=== PATIENT | female | born 1990 | race Caucasian/White ===

== ENCOUNTER 2017-07-16 17:00 | Emergency (ER) | payer SELFPAY ==
[2017-07-16 17:06] VITALS: BP 120/68
--- NOTE | 2017-07-16 17:26 | ER Document Report ---
HPI - HPI Patient complains to provider of: Upper back, neck pain, and frequent headaches Onset: Other Onset/Duration: Sudden Quality of pain: Achy Severity: Moderate - Very seldom it was Danilo earlier Pain Level: 3 Context: Patient states she was carrying boxes down a staircase of about 10-15 steps 1 week ago. Patient states she fell, but did not feel hurt at the time. Since then she has developed neck and upper back pain that radiates around to the chest wall with movement. Patient states she has been having frequent headaches , states she bumped her head but there was no loss of consciousness, no nausea or vomiting, and no visual changes. Patient denies any bruises at time of incident. Associated Symptoms: Headache Exacerbated by: Movement Relieved by: Remaining still Similar symptoms previously: No Recently seen / treated by doctor: No - ROS ROS below otherwise negative: Yes Systems Reviewed and Negative: Yes All other systems reviewed and negative - CONSTITUTIONAL Constitutional: DENIES: Fever - EENT EENT: DENIES: Congestion - NEURO Neurology: REPORTS: Headache. DENIES: Weakness, Vision blurred, Dizzinesss / Vertigo - CARDIOVASCULAR Cardiovascular: DENIES: Chest pain - RESPIRATORY Respiratory: DENIES: Trouble Breathing - GASTROINTESTINAL Gastrointestinal: DENIES: Abdominal Pain - URINARY Urinary: DENIES: Dysuria - REPRODUCTIVE Reproductive: DENIES: : - MUSCULOSKELETAL Musculoskeletal: REPORTS: Back Pain, Neck Pain - DERM Skin Color: Normal Past Medical History - General Information source: Patient - Social History Smoking Status: Current Some Day Smoker Cigarette use (# per day): Yes Frequency of alcohol use: None Drug Abuse: None Lives with: Family Family History: Arthritis, CVA, DM, Hypertension, Malignancy, Thyroid Disfunction Patient has suicidal ideation: No Patient has homicidal ideation: No Pulmonary Medical History: Reports: Hx Asthma Surgical Hx: Negative - Immunizations Immunizations up to date: Yes Hx Diphtheria, Pertussis, Tetanus Vaccination: Yes - 2007 Hx Pneumococcal Vaccination: 04/22/14 Vertical Provider Document - CONSTITUTIONAL Agree With Documented VS: Yes Exam Limitations: No Limitations General Appearance: WD/WN, No Apparent Distress - INFECTION CONTROL TRAVEL OUTSIDE OF THE [place] IN LAST 30 DAYS: No - HEENT HEENT: Atraumatic, Normal ENT Exam, Normocephalic, PERRLA - NECK Notes: Patient has tender C-spine and bilateral cervical muscles. Range of motion reproduces pain. - RESPIRATORY Respiratory: Breath Sounds Normal, No Respiratory Distress, Chest Non-Tender O2 Sat by Pulse Oximetry: 99 - CARDIOVASCULAR Cardiovascular: Regular Rate, Regular Rhythm - GI/ABDOMEN Gastrointestinal: Abdomen Soft, Abdomen Non-Tender, Normal Bowel Sounds - BACK Notes: Patient is tender along cervical spine and thoracic spine. Lumbar spine nontender. Thoracic muscles tender bilaterally. - MUSCULOSKELETAL/EXTREMETIES Musculoskeletal/Extremeties: MAEW Notes: Patient is able to fully raise her arms above her head and place her hands behind her back without difficulty, although she states this is uncomfortable. - NEURO Level of Consciousness: Awake, Alert, Appropriate Notes: Cranial nerves grossly intact - DERM Integumentary: Warm, Dry, No Rash Course - Re-evaluation Re-evalutation: 07/16/17 18:[address] CT from 2014 negative and discussed with patient when she had a similar injury. - Vital Signs Vital signs: Temp Pulse Resp BP Pulse Ox 98.6 F 83 16 120/68 99 07/16/17 17:01 07/16/17 17:01 07/16/17 17:01 07/16/17 17:01 07/16/17 17:01 Discharge - Discharge Clinical Impression: Neck pain, Thoracic spine pain Cervical muscle strain Qualifiers: Encounter type: initial encounter Qualified Code(s): S16.1XXA - Strain of muscle, fascia and tendon at neck level, initial encounter Condition: Good Disposition: HOME, SELF-CARE Additional Instructions: Meds as prescribed Ice or heat packs to neck Recommend follow-up with orthopedic for further evaluation of neck and upper back pain Follow-up with your doctor if not better in 1 week, or return to the ER if worsens. Prescriptions: Diazepam [Valium 5 mg Tablet] 5 mg PO TID #15 tablet Ibuprofen 600 mg PO TID #15 tablet
[2017-07-16] MEDS ORDERED: IBUPROFEN 600 MG TABLET PO ONE (17:28)
[2017-07-16] MEDS ORDERED: KETOROLAC TROMETHAMINE 60 MG/2 ML SDV IM ONE (17:39)
--- NOTE | 2017-07-16 18:23 | RADIOLOGY REPORT (SQ) ---
EXAM DESCRIPTION: T SPINE AP/LAT COMPLETED DATE/TIME: 07/16/2017 5:55 pm REASON FOR STUDY: fall injury COMPARISON: None. NUMBER OF VIEWS: Two views. TECHNIQUE: AP and lateral radiographic images acquired of the thoracic spine. LIMITATIONS: None. FINDINGS: MINERALIZATION: Normal. ALIGNMENT: Normal. No scoliosis. VERTEBRAE: No fracture or bone lesion. Maintained height, normal segmentation. DISCS: No significant loss of height or significant narrowing. No large osteophytes. HARDWARE: None in the spine. MEDIASTINUM AND SOFT TISSUES: Normal heart size and aortic contour. No soft tissue abnormality. VISUALIZED LUNG HICKEY: Clear. OTHER: No other significant finding. IMPRESSION: NO SIGNIFICANT RADIOGRAPHIC FINDING IN THE THORACIC SPINE. TECHNICAL DOCUMENTATION: JOB ID: [id number] [employer]- All Rights Reserved
--- NOTE | 2017-07-16 18:25 | RADIOLOGY REPORT (SQ) ---
EXAM DESCRIPTION: CERV SP 4 OR 5 VIEWS COMPLETED DATE/TIME: 07/16/2017 5:55 pm REASON FOR STUDY: fall injury COMPARISON: None. NUMBER OF VIEWS: Five views. TECHNIQUE: AP, lateral, obliques and odontoid radiographic images acquired of the cervical spine. LIMITATIONS: None. FINDINGS: MINERALIZATION: Normal. ALIGNMENT: Reversal of the cervical lordosis. VERTEBRAE: Vertebral bodies of normal height. DISCS: No significant osteophytes or sclerosis. Disc height maintained. FORAMINA: No osteophytes or foraminal narrowing. LATERAL AND POSTERIOR ELEMENTS: Facets, lateral masses and spinous processes without significant find ings. HARDWARE: None in the spine. SOFT TISSUES: No masses or calcifications. Lung apices clear. OTHER: No other significant finding. IMPRESSION: No fracture identified.Reversal of the cervical lordosis. TECHNICAL DOCUMENTATION: JOB ID: [id number] [employer]- All Rights Reserved
== END 2017-07-16 19:01 | disposition home or self-care (01) ==
LOC: ER 17:00
DX: S16.1XXA Strain of muscle, fascia and tendon at neck level, initial encounter (principal); M54.6 Pain in thoracic spine; R51 Headache; W10.9XXA Fall (on) (from) unspecified stairs and steps, initial encounter; F17.210 Nicotine dependence, cigarettes, uncomplicated
CPT/HCPCS: 99283; 96372; 72050; 72070; J1885

== ENCOUNTER 2018-06-07 16:21 | Emergency (ER) | payer MEDICAID ==
--- NOTE | 2018-06-07 17:45 | ER Document Report ---
ED Medical Screen (RME) - General Chief Complaint: Chest Pain Stated Complaint: NECK/BACK PAIN, SHORTNESS OF BREATH Time Seen by Provider: 06/07/18 17:19 TRAVEL OUTSIDE OF THE [place] IN LAST 30 DAYS: No - HPI Patient complains to provider of: Chest pain Onset: Other - 27-year-old female presents for evaluation of chest pain which began yesterday and felt like to trucks pushing against her chest, she took an aspirin for that at that time, since that time it has persisted it is worse when she takes particularly deep breath, she denies specifically any prolonged immobility hemoptysis fever exogenous estrogen use recent surgeries or history of clot. Denies any history of heart attack endorses family history of heart disease in the past. - Related Data Allergies/Adverse Reactions: No Known Allergies Allergy (Verified 06/07/18 16:23) Past Medical History Pulmonary Medical History: Reports: Hx Asthma Renal/ Medical History: Denies: Hx Peritoneal Dialysis - Immunizations Immunizations up to date: Yes Hx Diphtheria, Pertussis, Tetanus Vaccination: Yes - 2007 Physical Exam - Vital signs Vitals: Temp Pulse Resp BP Pulse Ox 99.3 F 73 20 115/71 100 06/07/18 16:49 06/07/18 16:49 06/07/18 16:49 06/07/18 16:49 06/07/18 16:49 Course - Re-evaluation Re-evalutation: 06/07/18 17:44 27-year-old PERC negative female presents for evaluation of chest pain which began yesterday. Given that she has had greater than 3 hours of symptoms will obtain a single troponin ordered at this time a chest x-ray and EKG through triage which is normal. We will reassess patient following obtaining of labs as well as chest x-ray and more thorough history and physical exam. - Vital Signs Vital signs: Temp Pulse Resp BP Pulse Ox 99.3 F 73 20 115/71 100 06/07/18 16:49 06/07/18 16:49 06/07/18 16:49 06/07/18 16:49 06/07/18 16:49
[2018-06-07 18:03] LABS: ABSOLUTE EOSINOPHILS # (AUTO) 0.6 10^3/uL (0.0-0.6); ABSOLUTE LYMPHOCYTES (AUTO) 2.1 10^3/uL (0.5-4.7); ABSOLUTE MONOCYTES (AUTO) 0.7 10^3/uL (0.1-1.4); ABSOLUTE NEUT (AUTO) 4.4 10^3/uL (1.7-8.2); BASOPHILS % (AUTO) 0.6 % (0-2); EOSINOPHILS % (AUTO) 7.8 % (0-6); HEMATOCRIT 39.4 % (36.0-47.0); HEMOGLOBIN 13.3 g/dL (12.0-15.5); LYMPHOCYTES % (AUTO) 26.6 % (13-45); MEAN CORPUSCULAR HEMOGLOBIN 30.5 pg (27.0-33.4); MEAN CORPUSCULAR HGB CONC 33.8 g/dL (32.0-36.0); MEAN CORPUSCULAR VOLUME 90 fl (80-97); MONOCYTES % (AUTO) 8.5 % (3-13); PLATELET COUNT 166 10^3/uL (150-450); RED BLOOD COUNT 4.38 10^6/uL (3.72-5.28); RED CELL DISTRIBUTION WIDTH 12.4 % (11.5-14.0); SEGMENTED NEUTROPHILS % (AUTO) 56.5 % (42-78); TOTAL CELLS COUNTED % (AUTO) 100 %; WHITE BLOOD COUNT 7.7 10^3/uL (4.0-10.5)
--- NOTE | 2018-06-07 18:30 | RADIOLOGY REPORT (SQ) ---
EXAM DESCRIPTION: CHEST 2 VIEWS COMPLETED DATE/TIME: 06/07/2018 6:18 pm REASON FOR STUDY: chest pain COMPARISON: None. EXAM PARAMETERS: NUMBER OF VIEWS: two views TECHNIQUE: Digital Frontal and Lateral radiographic views of the chest acquired. RADIATION DOSE: NA LIMITATIONS: none FINDINGS: LUNGS AND PLEURA: No opacities, masses or pneumothorax. No pleural effusion. MEDIASTINUM AND HILAR STRUCTURES: No masses or contour abnormalities. HEART AND VASCULAR STRUCTURES: Heart normal size. No evidence for failure. BONES: No acute findings. HARDWARE: None in the chest. OTHER: No other significant finding. IMPRESSION: NO ACUTE RADIOGRAPHIC FINDING IN THE CHEST. TECHNICAL DOCUMENTATION: JOB ID: [id number] [employer]- All Rights Reserved Reading location - IP/workstation name: [email or web address]
[2018-06-07 18:31] LABS: ANION GAP 12 (5-19); BLOOD UREA NITROGEN 12 mg/dL (7-20); CALCIUM 9.7 mg/dL (8.4-10.2); CARBON DIOXIDE 26 mmol/L (22-30); CHLORIDE 105 mmol/L (98-107); GLUCOSE 82 mg/dL (75-110); POTASSIUM 4.2 mmol/L (3.6-5.0); SODIUM 143.2 mmol/L (137-145)
--- NOTE | 2018-06-07 20:01 | ER Document Report ---
ED General - General Chief Complaint: Chest Pain Stated Complaint: NECK/BACK PAIN, SHORTNESS OF BREATH Time Seen by Provider: 06/07/18 17:19 Mode of Arrival: Ambulatory Information source: Patient Notes: 27-year-old female presented ED for evaluation of chest pain that began last night. She states it felt like a truck was pushed against her chest. She took some aspirin and the pain went away since that time she has had off-and-on pain in the left upper chest and shoulder area. She denies any radiation to the jaw or hand. She denies any known injuries. 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 She denies any cardiac history. She states she does have a history of hypothyroid but is not been to the doctor since her child was born who appears to be about 5 or 6. She does have a history of asthma. Patient is alert and oriented respirations regular and unlabored speaking in full sentences and walks with a even steady steady gait. She states the only activity she knows that she has had with patient on Saturday and lifted her child. TRAVEL OUTSIDE OF THE [place] IN LAST 30 DAYS: No - HPI Onset: Other - 2 days ago Onset/Duration: Sudden - Sudden chest pain yesterday and since then she has had a achy pressure especially when she takes a deep breath Quality of pain: Pressure - Sharp yesterday Severity: Moderate Pain Level: 3 Associated symptoms: Body/muscle aches, Chest pain Exacerbated by: Movement, Other - Palpation to the upper chest just below her shoulder Relieved by: Denies Similar symptoms previously: No Recently seen / treated by doctor: No - Related Data Allergies/Adverse Reactions: No Known Allergies Allergy (Verified 06/07/18 16:23) Past Medical History - General Information source: Patient - Social History Smoking Status: Current Every Day Smoker Cigarette use (# per day): Yes - One half pack per day Chew tobacco use (# tins/day): No Smoking Education Provided: Yes - 4 minutes Frequency of alcohol use: None Drug Abuse: None Occupation: Mom Lives with: Family Family History: Arthritis, CVA, DM, Hypertension, Malignancy, Thyroid Disfunction Patient has suicidal ideation: No Patient has homicidal ideation: No - Past Medical History Cardiac Medical History: Reports: None Pulmonary Medical History: Reports: Hx Asthma EENT Medical History: Reports: None Neurological Medical History: Reports: None Endocrine Medical History: Reports: Hx Hyperthyroidism Renal/ Medical History: Reports: None Malignancy Medical History: Reports: None GI Medical History: Reports: None - Immunizations Immunizations up to date: Yes Hx Diphtheria, Pertussis, Tetanus Vaccination: Yes - 2007 Hx Pneumococcal Vaccination: 04/22/14 Review of Systems - Review of Systems Constitutional: No symptoms reported EENT: No symptoms reported Cardiovascular: Chest pain - Worse with palpation or movement of the left shoulder Respiratory: No symptoms reported Gastrointestinal: No symptoms reported Genitourinary: No symptoms reported Female Genitourinary: No symptoms reported Musculoskeletal: No symptoms reported Skin: No symptoms reported Hematologic/Lymphatic: No symptoms reported Neurological/Psychological: No symptoms reported -: Yes All other systems reviewed and negative Physical Exam - Vital signs Vitals: Temp Pulse Resp BP Pulse Ox 99.3 F 73 20 115/71 100 06/07/18 16:49 06/07/18 16:49 06/07/18 16:49 06/07/18 16:49 06/07/18 16:49 Interpretation: Normal - General General appearance: Appears well, Alert - HEENT Head: Normocephalic, Atraumatic Eyes: Normal Pupils: PERRL - Respiratory Respiratory status: No respiratory distress Chest status: Tender - Tender to palpation, Pain on movement - Left shoulder, Pain with deep breathing Breath sounds: Normal Chest palpation: Normal - Cardiovascular Rhythm: Regular Heart sounds: Normal auscultation Murmur: No - Abdominal Inspection: Normal Distension: No distension Bowel sounds: Normal Tenderness: Nontender Organomegaly: No organomegaly - Back Back: Normal, Nontender - Extremities General upper extremity: Normal inspection, Nontender, Normal color, Normal ROM , Normal temperature General lower extremity: Normal inspection, Nontender, Normal color, Normal ROM , Normal temperature, Normal weight bearing. No: Renata's sign - Neurological Neuro grossly intact: Yes Cognition: Normal Orientation: AAOx4 Justina Coma Scale Eye Opening: Spontaneous Imogene Coma Scale Verbal: Oriented Imogene Coma Scale Motor: Obeys Commands Imogene Coma Scale Total: 15 Speech: Normal Motor strength normal: LUE, RUE, LLE, RLE Sensory: Normal - Psychological Associated symptoms: Normal affect, Normal mood - Skin Skin Temperature: Warm Skin Moisture: Dry Skin Color: Normal Course - Re-evaluation Re-evalutation: 06/08/18 00:09 Discussed results of x-ray and lab results with patient and written reports of labs and x-ray given to patient. Patient had musculoskeletal tenderness to the left upper chest up to the shoulder. Pain with movement of the left shoulder. I do not believe this chest pain had anything to do with cardiac chest pain. EKG was normal and labs were normal. Patient was discharged home to follow-up with her primary doctor. Patient was able to verbalize understanding and agreement with treatment plan. - Vital Signs Vital signs: Temp Pulse Resp BP Pulse Ox 98.1 F 79 16 120/74 99 06/07/18 21:23 06/07/18 21:23 06/07/18 21:23 06/07/18 21:23 06/07/18 21:23 - Laboratory Result Diagrams: 06/07/18 17:53 06/07/18 17:53 Laboratory results interpreted by me: 06/07/18 17:53 Eosinophils % 7.8 H Discharge - Discharge Clinical Impression: Chest pain Qualifiers: Chest pain type: unspecified Qualified Code(s): R07.9 - Chest pain, unspecified Condition: Stable Disposition: HOME, SELF-CARE Instructions: Family Physicians / Practices Additional Instructions: CHEST PAIN OF UNCLEAR CAUSE: The exact cause of your chest pain isn't clear. Fortunately, there is no evidence of a dangerous medical condition. Further testing may be required to find the source of the pain. Most often, we find that this pain is coming from the chest wall -- the muscles or rib joints in the chest. But chest pain can come from the lung and lung lining, the esophagus, the heart valves or heart lining, and even the stomach or gallbladder. Rest. Eat lightly until the pain is gone. We may prescribe medicine for pain and inflammation. You should call the physician immediately if the pain radiates to the shoulder, jaw or arms; if you start to run a fever or develop a cough; or if you develop shortness of breath, or other new or alarming symptoms. NORMAL EXAM AND WORKUP: At this time, your examination and workup show no significant abnormality. No significant abnormal physical findings were noted. All laboratory, EKG, and imaging (x-ray, CT scans, ultrasound) studies that were ordered show no significant abnormality. Although your examination and all studies that were ordered showed no significant abnormal finding, there are no examinations and no studies that are 100% accurate. There is always the possibility that some abnormality could exist and not be detected with physical examination or within the limits and capabilities of laboratory and other studies. You should return or follow up as you were instructed on your visit today for further evaluation if your symptoms do not resolve. CHEST WALL PAIN: Your chest pain may be coming from the chest wall. This is often caused by straining the muscles or joints in the chest during physical activity, direct trauma, coughing, or vigorous vomiting. Persons with arthritis are especially prone to this type of pain, due to inflammation of the cartilage joints near the breast bone. Occasionally, no cause can be found. Rest from strenuous physical activity. This kind of chest pain is usually made worse by movement of the chest. Depending on the symptoms, we may prescribe medicine for pain, muscle relaxation, and antiinflammatory effects. If the pain is new, and seems to be due to muscle strain, cold packs can help. Otherwise, apply gentle warmth to the painful area for 15 minutes every hour or two. You should call contact the doctor immediately if things change. Further evaluation is needed if you develop a fever or cough, if the nature of the pain changes, or if you become short of breath. ASPIRIN: Aspirin has been shown to have a beneficial effect on blood circulation by reducing the clotting effect of platelets in the blood. These beneficial effects can be achieved by taking just a single baby (81 mg) aspirin a day. It is recommended that any person over the age of forty take a single baby aspirin every day for heart and brain circulation, unless you are allergic to aspirin or have some significant bleeding disorder. It is strongly recommended that people who have proven cardiac or blood circulation disturbances should take a baby aspirin every day. FOLLOW-UP CARE: If you have been referred to a physician for follow-up care, call the physician s office for an appointment as you were instructed or within the next two days. If you experience worsening or a significant change in your symptoms, notify the physician immediately or return to the Emergency Department at any time for re-evaluation. Forms: Smoking Cessation Education, Parent Work Note
[2018-06-07] MEDS ORDERED: ASPIRIN 81 MG TABLET, CHEWABLE PO ONE (20:24)
--- NOTE | 2018-06-07 20:53 | EKG REPORT ---
SEVERITY:- NORMAL ECG - SINUS RHYTHM : Confirmed by: Major Goetz 07-Jun-2018 20:52:53
[2018-06-07 21:25] VITALS: BP 120/74
== END 2018-06-07 21:24 | disposition home or self-care (01) ==
LOC: ER 16:21
DX: R07.9 Chest pain, unspecified (principal); M54.2 Cervicalgia; R06.02 Shortness of breath; M79.1 Myalgia; F17.210 Nicotine dependence, cigarettes, uncomplicated
CPT/HCPCS: 36415; 71046; 80048; 84443; 84484; 85025; 93005; 93010; 99284; 99406

== ENCOUNTER 2019-08-09 18:22 | Emergency (ER) | payer MEDICAID, OTHER ==
[2019-08-09 18:28] VITALS: BP 109/68
[2019-08-09] MEDS ORDERED: LIDOCAINE 1% INJ-PF (10 MG/ML) 30 ML SDV INJ ONE (18:33)
[2019-08-09] MEDS ORDERED: IBUPROFEN 600 MG TABLET PO ONE (18:33)
[2019-08-09] MEDS ORDERED: DIPH/PERTUSS(ACELL)/TETANUS VAC/PF 0.5 ML SYR (>=10YO) IM ONE (18:33)
--- NOTE | 2019-08-09 18:39 | ER Document Report ---
HPI - HPI Time Seen by Provider: 08/09/19 18:27 Context: Patient is a 29-year-old female who presents to the emergency department with chief complaint of laceration to the hand. Patient reports prior to arrival she was taking out the trash at work when she cut the top of her left hand. Patient reports significant pain with movement to the base of the left index finger. Patient reports initially there was a lot of blood but this is now controlled with pressure. Patient denies numbness or tingling to the index finger. Patient states she is unsure when her last tetanus shot was. - REPRODUCTIVE Reproductive: DENIES: : Past Medical History - General Information source: Patient - Social History Smoking Status: Unknown if Ever Smoked Frequency of alcohol use: None Drug Abuse: None Lives with: Family Family History: Arthritis, CVA, DM, Hypertension, Malignancy, Thyroid Disfunction - Past Medical History Cardiac Medical History: Reports: None Pulmonary Medical History: Reports: Hx Asthma EENT Medical History: Reports: None Neurological Medical History: Reports: None Endocrine Medical History: Reports: Hx Hyperthyroidism Renal/ Medical History: Reports: None. Denies: Hx Peritoneal Dialysis Malignancy Medical History: Reports: None GI Medical History: Reports: None Musculoskeletal Medical History: Reports None Skin Medical History: Reports None Psychiatric Medical History: Reports: None Traumatic Medical History: Reports: None Infectious Medical History: Reports: None Surgical Hx: Negative - Immunizations Immunizations up to date: Yes Hx Diphtheria, Pertussis, Tetanus Vaccination: Yes - 2007 Hx Pneumococcal Vaccination: 04/22/14 Vertical Provider Document - CONSTITUTIONAL Agree With Documented VS: Yes Exam Limitations: No Limitations General Appearance: No Apparent Distress - INFECTION CONTROL TRAVEL OUTSIDE OF THE [place] IN LAST 30 DAYS: No - HEENT HEENT: Atraumatic, Normocephalic, PERRLA - RESPIRATORY Respiratory: Breath Sounds Normal, No Respiratory Distress - CARDIOVASCULAR Cardiovascular: Regular Rate, Regular Rhythm - GI/ABDOMEN Gastrointestinal: Abdomen Soft, Abdomen Non-Tender, Normal Bowel Sounds - NEURO Level of Consciousness: Awake, Alert, Appropriate - DERM Integumentary: Laceration Notes: Patient has a 1 cm laceration to the dorsal aspect of the second digit of the left hand at the MCP joint, no active bleeding, this appears superficial. Patient has strong flexion of the index finger in weaker flexion. Patient reports she can flex but this causes pain over the laceration. There is ecchymosis and slight edema noted to the left index finger MCP joint. Course - Re-evaluation Re-evalutation: 08/09/19 18:38 My suspicion for a flexor tendon injury of the left index finger is low. Patient is able to passively flex and extend the finger. Patient is weaker with extension against resistance. I will have the patient follow-up with orthopedics after suture repair and placing her in a finger splint. We will place the patient on prophylactic antibiotic. 08/09/19 19:21 Patient instructed to follow-up with a hand surgeon as she does have a week or extension of the finger. During wound exploration I did not visualize a tendon and it did appear to be very superficial. Patient verbalized understanding. - Vital Signs Vital signs: Temp Pulse Resp BP Pulse Ox 98.0 F 71 16 109/68 96 08/09/19 18:27 08/09/19 18:27 08/09/19 18:27 08/09/19 18:27 08/09/19 18:27 Procedures - Laceration/Wound Repair Left Dorsal Finger 2nd digit Time completed: 19:00 Wound length (cm): 1 Wound's Depth, Shape: Superficial, Flap Laceration pre-procedure: Sterile PPE donned, Sterile drapes applied, Shur-Clens applied Anesthetic type: 1% Lidocaine w/epi Volume Anesthetic (mLs): 1 Wound explored: Clean, No foreign body removed Irrigated w/ Saline (mLs): 250 Wound Repaired With: Sutures Suture Size/Type: 5:0, Nylon Number of Sutures: 2 Post-procedure wound care: Sterile dressing applied, Splint applied - Finger splint Post-procedure NV exam normal: Yes Complications: No Discharge - Discharge Clinical Impression: Finger laceration Qualifiers: Encounter type: initial encounter Finger: index finger Damage to nail status: without damage Foreign body presence: without foreign body Laterality: left Qualified Code(s): S61.211A - Laceration without foreign body of left index finger without damage to nail, initial encounter Condition: Stable Disposition: HOME, SELF-CARE Instructions: Prophylactic Antibiotic ([facility]), Tetanus Immunization Given ([facility]) Additional Instructions: Today you are seen in the emergency department for a finger laceration. We did irrigate the wound copiously and applied to suture (2). You are being placed on a prophylactic antibiotic due to the mechanism of injury. My suspicion for tendon injury is low as I did not visualize the tendon and the did appear superficial. Please follow-up with Dr. Carrington who is her hand surgeon. Please contact his office tomorrow to schedule a follow-up appointment. You should be able to see this doctor and establish something through Workmen's Comp. You do need to have the sutures removed within the next 10 to 14 days. We have applied a finger splint. The finger splint is to help keep the sutures intact. Please take this off daily monitor for signs of infection to include redness, swelling, drainage. If you do develop any significant change like inability to move the finger up and down or new numbness and tingling please seek medical attention. LACERATION CARE: Your laceration has been sutured to keep the skin edges aligned during healing. The time of suture removal depends on the nature and location of your cut. Please follow the care instructions the doctor has outlined for you and return for further care, according to the schedule you've been given. Keep the wound and dressing clean. Unless you were told otherwise, you may shower daily, blotting the wound dry with a clean, unused towel. At other times, If the dressing gets wet or blood soaked, remove it and blot the wound dry, then reapply a new dressing. Unless you were instructed otherwise, dressings should be changed at least daily. If any signs of infection occur (swelling, redness, drainage, increasing tenderness, red streaks, tender lumps in the armpit or groin above the lacerat ion, or fever), see the doctor immediately. SOAP CLEANSING: Gently wash the wound daily using a mild soap (like Ivory, Phisoderm, Neutrogena). Use warm water, rubbing gently until all debris, ooze, and crusting have been washed from the wound. Allow to dry briefly (about 10 minutes) after cleaning. Repeat this cleansing at least three times a day for the first two days and then once or twice a day. ANTIBIOTIC OINTMENT PROTECTION: Your wounds are such that dressing them is not practical or optional. After cleansing, you should apply a thin coating of antibiotic ointment (Bacit racin, not Neosporin) to the wounds at least three times daily. This lessens infection risk, and may decrease the amount of scarring. Use a q-tip or dull butter knife, not your finger, to apply this ointment. Any debris or ooze which builds up in the ointment should be gently rubbed off with a sterile gauze pad. Harder crusting may need to be gently scrubbed off with a clean wash cloth with soap and warm water, perhaps applying a warm, wet wash cloth to the wound for ten minutes first. Development of redness, severe itching, or blistering may mean allergy to the ointment. See the doctor. TETANUS IMMUNIZATION GIVEN: You have been given an immunization against tetanus. Please record this in your records. In general, a booster is needed only once every 10 years. The te tanus shot protects against tetanus or "lockjaw," which is a complication of certain wound infections (the tetanus shot cannot protect against the actual infection). The immunization site may become warm and red due to local reaction. If this occurs, apply warm compresses and take aspirin or ibuprofen to reduce inflammation and discomfort. Return for evaluation if the reaction becomes severe. PROPHYLACTIC ANTIBIOTIC: The antibiotics which have been prescribed are designed to decrease the risk of infection. Only certain types of wounds benefit from this -- the typical cut, scrape, or burn DOES NOT require antibiotics. Of course, infection can still occur despite the use of prophylactic antibiotics. Your wound will heal with less chance of an infectious complication if you take the medication as directed. The most important dose is the FIRST dose, so don't delay filling the prescription! FOLLOW-UP CARE: Your sutures should be removed in __10-14__ days. To facilitate a timely removal of your sutures, you may return to the Emergency Department at [facility]. You do not need to call for an appointment, but the best time to come in for suture removal is early in the morning. If you have been referred to another physician for follow-up care, call that physicians office for an appointment as you were instructed. If you experience a significant change in your laceration, or if you are concerned there may be an infection (swelling, redness, drainage, increasing tenderness, red streaks, tender lumps in the armpit or groin above the laceration, or fever), return to the Emergency Department immediately re-evaluation. Prescriptions: Cephalexin Monohydrate [Keflex 500 mg Capsule] 500 mg PO Q6H 5 Days capsule Referrals: MING CARRINGTON, [ACTIVE STAFF] - Follow up as needed
[2019-08-09] MEDS ORDERED: CEPHALEXIN 500 MG CAPSULE PO ONE (19:12)
== END 2019-08-09 19:27 | disposition home or self-care (01) ==
LOC: ER 18:22
DX: S61.211A Laceration without foreign body of left index finger without damage to nail, initial encounter (principal); W45.8XXA Other foreign body or object entering through skin, initial encounter; Y99.0 Civilian activity done for income or pay; E03.9 Hypothyroidism, unspecified
CPT/HCPCS: 99282; 90471; 90715; 12001; J3490